=== PATIENT | male | born 1970 | race Caucasian/White ===

== ENCOUNTER 2018-09-30 16:39 | Inpatient (IN) | payer OTHER ==
[~2018-09-30] VITALS: Ht 170.2 cm; Wt 75.0 kg
[2018-09-30] MEDS ORDERED: HALOPERIDOL LACTATE 5 MG/ML VIAL IM ONE (17:45)
[2018-09-30] MEDS ORDERED: LORazepam 2 MG/ML VIAL IM ONE (17:45)
[2018-09-30] MEDS ORDERED: DiphenhydrAMINE HCL 50 MG/ML VIAL IM ONE (17:45)
[2018-09-30] MEDS ORDERED: ZOLPIDEM TARTRATE 10 MG TABLET PO PRN (17:45)
[2018-09-30 18:40] LABS: BASOPHILS % (AUTO) 0.3 % (0.0-2.0); EOSINOPHILS % (AUTO) 0.4 % (1.0-6.0); HEMATOCRIT 43.1 % (41-53); HEMOGLOBIN 14.2 g/dL (13.5-17.5); LYMPHOCYTES % (AUTO) 8.3 % (22.0-44.0); MEAN CORPUSCULAR HEMOGLOBIN 24.6 pg (26.0-34.0); MEAN CORPUSCULAR HGB CONC 32.9 G/dL (31.0-37.0); MEAN CORPUSCULAR VOLUME 75 fL (80-100); MONOCYTES # (AUTO) 0.9 K/uL (0.1-1.0); MONOCYTES % (AUTO) 7.4 % (2.0-9.0); NEUTROPHILS # (AUTO) 9.9 K/uL (1.8-7.7); NEUTROPHILS % (AUTO) 83.6 % (40.0-70.0); PLATELET COUNT (AUTO) 274 K/uL (150-450); RED BLOOD CELL COUNT(AUTO) 5.77 MIL/uL (4.50-5.90); RED CELL DISTRIBUTION WIDTH 18.6 % (11.5-14.5)
[2018-09-30 18:59] LABS: ANION GAP 10 mmol/L (8-16); CALCIUM, TOTAL 9.5 mg/dL (8.8-10.5); CARBON DIOXIDE 24 mmol/L (22-29); CHLORIDE 105 mmol/L (98-107); CREATININE 1.28 mg/dL (0.60-1.30); GLOMERULAR FILTR. RATE CALC 60 mL/min (>60); GLUCOSE,RANDOM 137 mg/dL (70-110); POTASSIUM 3.7 mmol/L (3.5-5.1); SODIUM SERUM 139 mmol/L (136-145); UREA NITROGEN, BLOOD 10 mg/dL (7-18)
[2018-09-30 19:03] LABS: ALANINE AMINOTRANSFERASE 26 U/L (12-78); ALBUMIN 3.9 g/dL (3.4-5.0); ALKALINE PHOSPHATASE 132 U/L (46-116); ASPARTATE AMINOTRANSFERASE 44 U/L (15-37); BILIRUBIN,TOTAL 0.5 mg/dL (0.1-1.0); TOTAL PROTEIN, SERUM 7.5 g/dL (6.4-8.2)
[2018-09-30 20:20] VITALS: BP 124/80
[2018-09-30] MEDS ORDERED: ALBUTEROL SULFATE HFA 90 MCG/PUFF 8 GM INHALER IH PRN (22:15)
[2018-09-30] MEDS ORDERED: LOPERAMIDE HCL 2 MG CAPSULE PO PRN (22:15)
[2018-09-30] MEDS ORDERED: ACETAMINOPHEN 325 MG TABLET PO PRN (22:15)
[2018-09-30] MEDS ORDERED: CloNIDine HCL 0.1 MG TABLET PO PRN (22:15)
[2018-09-30] MEDS ORDERED: MAGNESIUM HYDROXIDE SUSPENSION 30 ML UDCUP PO PRN (22:15)
[2018-09-30] MEDS ORDERED: MAG HYDROX/AL HYDROX/SIMETH ES 30 ML SUSPENSION UDCUP PO PRN (22:15)
[2018-09-30] MEDS ORDERED: GuaiFENesin/D-METHORPHAN [SUGAR-FREE] 200-20MG/10 ML SYRUP UDCUP PO PRN (22:15)
[2018-09-30] MEDS ORDERED: DOCUSATE SODIUM 100 MG CAPSULE PO PRN (22:15)
[2018-09-30] MEDS ORDERED: IBUPROFEN 400 MG TABLET PO PRN (22:15)
[2018-09-30] MEDS ORDERED: ONDANSETRON HCL 4 MG TABLET PO PRN (22:15)
[2018-09-30] MEDS ORDERED: PETROLATUM,WHITE 71 GM JELLY TP PRN (22:15)
[2018-09-30] MEDS ORDERED: NICOTINE 14 MG/24 HOUR PATCH TD PRN (22:15)
[2018-10-01 05:54] LABS: BASOPHILS % (AUTO) 1.2 % (0.0-2.0); EOSINOPHILS % (AUTO) 2.7 % (1.0-6.0); HEMATOCRIT 46.3 % (41-53); LYMPHOCYTES # (AUTO) 1.8 K/uL (1.0-4.8); LYMPHOCYTES % (AUTO) 20.1 % (22.0-44.0); MEAN CORPUSCULAR HEMOGLOBIN 24.8 pg (26.0-34.0); MEAN CORPUSCULAR HGB CONC 32.5 G/dL (31.0-37.0); MEAN CORPUSCULAR VOLUME 76 fL (80-100); MONOCYTES # (AUTO) 1.1 K/uL (0.1-1.0); MONOCYTES % (AUTO) 12.1 % (2.0-9.0); NEUTROPHILS # (AUTO) 5.8 K/uL (1.8-7.7); NEUTROPHILS % (AUTO) 63.9 % (40.0-70.0); PLATELET COUNT (AUTO) 271 K/uL (150-450); RED BLOOD CELL COUNT(AUTO) 6.07 MIL/uL (4.50-5.90); RED CELL DISTRIBUTION WIDTH 18.4 % (11.5-14.5)
[2018-10-01 06:09] LABS: HEMOGLOBIN A1C 5.9 % (4.5-6.2)
[2018-10-01 06:11] LABS: ALBUMIN 3.8 g/dL (3.4-5.0); BILIRUBIN,TOTAL 0.7 mg/dL (0.1-1.0); CALCIUM, TOTAL 9.2 mg/dL (8.8-10.5); CHOL/HDL RATIO 2.5 (4.2-7.3); CREATININE 1.37 mg/dL (0.60-1.30); POTASSIUM 4.1 mmol/L (3.5-5.1); THYROID STIMULATING HORMONE 1.18 uIU/mL (0.36-3.74); TOTAL PROTEIN, SERUM 7.8 g/dL (6.4-8.2)
[2018-10-01 08:10] VITALS: BP 133/99
[2018-10-01] MEDS: OLANZapine 10 MG TABLET PO SCH (16:16)
[2018-10-01] MEDS: LORazepam 2 MG TABLET PO PRN (16:31)
[2018-10-01 17:53] LABS: APPEARANCE,URINE CLOUDY (CLEAR); BILIRUBIN,URINE NEGATIVE (NEGATIVE); GLUCOSE, URINE (UA) NEGATIVE (NEGATIVE); KETONES,URINE NEGATIVE (NEGATIVE); LEUKOCYTE ESTERASE ,URINE NEGATIVE (NEGATIVE); NITRATE,URINE NEGATIVE (NEGATIVE); OCCULT BLOOD,URINE NEGATIVE (NEGATIVE); PH,URINE 6.5 (5.0-8.0); PROTEIN,URINE NEGATIVE (NEGATIVE); UROBILINOGEN,URINE 0.2 mg/dL (<=1.0)
[2018-10-01 17:58] LABS: AMPHET/METH SCREEN,URINE NEGATIVE (NEGATIVE); BARBITURATE SCREEN, URINE NEGATIVE (NEGATIVE); BENZODIAZEPINES SCREEN,URINE NEGATIVE (NEGATIVE); CANNABINOID SCREEN,URINE POSITIVE (NEGATIVE); COCAINE SCREEN,URINE NEGATIVE (NEGATIVE); METHADONE SCREEN, URINE NEGATIVE (NEGATIVE); OPIATE SCREEN,URINE NEGATIVE (NEGATIVE)
[2018-10-01 18:00] LABS: PHENCYCLIDINE SCREEN,URINE NEGATIVE (NEGATIVE)
[2018-10-02 08:00] VITALS: BP 127/74
[2018-10-02] MEDS: OLANZapine 10 MG TABLET PO SCH ×2 (10:32→16:05)
[2018-10-02 16:47] VITALS: BP 145/82
[2018-10-02 16:53] LABS: GLUCOMETER DEV NAME(LOC) 3EC; GLUCOSE,POINT OF CARE 121 MG/DL (70-110)
[2018-10-02] MEDS: LORazepam 2 MG TABLET PO PRN (16:55)
[2018-10-02] MEDS: HALOPERIDOL 5 MG TABLET PO PRN (16:57)
[2018-10-03] MEDS: MetFORMIN HCL 500 MG TABLET PO SCH (06:35)
[2018-10-03] MEDS ORDERED: MetFORMIN HCL 500 MG TABLET PO SCH (07:30)
[2018-10-03 08:27] VITALS: BP 139/99
[2018-10-03] MEDS: LORazepam 2 MG TABLET PO PRN ×2 (08:47→15:54)
[2018-10-03] MEDS: OLANZapine 10 MG TABLET PO SCH ×2 (08:47→15:54)
[2018-10-03] MEDS: HALOPERIDOL 5 MG TABLET PO PRN ×2 (08:47→15:54)
[2018-10-03 15:58] LABS: GLUCOMETER DEV NAME(LOC) 3EC; GLUCOSE,POINT OF CARE 88 MG/DL (70-110)
[2018-10-03 15:58] LABS: GLUCOMETER DEV NAME(LOC) 3EC; GLUCOSE,POINT OF CARE 103 MG/DL (70-110)
[2018-10-03 16:50] VITALS: BP 135/85
[2018-10-04 06:38] LABS: GLUCOMETER DEV NAME(LOC) 3EC; GLUCOSE,POINT OF CARE 102 MG/DL (70-110)
[2018-10-04] MEDS: MetFORMIN HCL 500 MG TABLET PO SCH (06:43)
[2018-10-04] MEDS: HALOPERIDOL 5 MG TABLET PO PRN ×2 (07:51→15:49)
[2018-10-04] MEDS: LORazepam 2 MG TABLET PO PRN ×2 (07:51→15:49)
[2018-10-04] MEDS: OLANZapine 10 MG TABLET PO SCH ×2 (08:25→16:12)
[2018-10-04 09:20] VITALS: BP 133/90
[2018-10-04 16:38] VITALS: BP 139/93
[2018-10-04 21:52] LABS: GLUCOMETER DEV NAME(LOC) 3EX 1; GLUCOSE,POINT OF CARE 113 MG/DL (70-110)
[2018-10-05 03:35] VITALS: BP 129/97
[2018-10-05] MEDS: LORazepam 2 MG TABLET PO PRN ×4 (03:43→18:31)
[2018-10-05 05:33] LABS: GLUCOMETER DEV NAME(LOC) 3EI C; GLUCOSE,POINT OF CARE 124 MG/DL (70-110)
[2018-10-05] MEDS: MetFORMIN HCL 500 MG TABLET PO SCH (06:56)
[2018-10-05] MEDS: OLANZapine 10 MG TABLET PO SCH ×2 (08:25→16:26)
[2018-10-05 09:03] VITALS: BP 137/91
[2018-10-05] MEDS: HALOPERIDOL 5 MG TABLET PO PRN (13:04)
[2018-10-05 17:04] LABS: GLUCOMETER DEV NAME(LOC) 3EI C; GLUCOSE,POINT OF CARE 154 MG/DL (70-110)
[2018-10-05 22:14] VITALS: BP 140/92
[2018-10-06 06:20] VITALS: BP 121/95
[2018-10-06 06:48] LABS: GLUCOMETER DEV NAME(LOC) 3EI C; GLUCOSE,POINT OF CARE 121 MG/DL (70-110)
[2018-10-06] MEDS: MetFORMIN HCL 500 MG TABLET PO SCH (06:56)
[2018-10-06 07:30] VITALS: BP 125/82
[2018-10-06] MEDS: OLANZapine 10 MG TABLET PO SCH ×2 (08:08→16:07)
[2018-10-06] MEDS: LORazepam 2 MG TABLET PO PRN (09:03)
[2018-10-06 09:07] VITALS: BP 141/88
[2018-10-06] MEDS ORDERED: METF-960 PO (15:23)
[2018-10-06] MEDS ORDERED: OLAN10TA3 PO (15:23)
[2018-10-06 15:58] LABS: GLUCOMETER DEV NAME(LOC) 3EI C; GLUCOSE,POINT OF CARE 116 MG/DL (70-110)
== END 2018-10-06 17:45 | disposition home or self-care (01) | DRG 885 ==
LOC: EMS 16:40 → 3EC 18:46 → 3EX 10-04 18:00
PROVIDERS: ADMIT Psychiatry & Neurology Child & Adolescent Psychiatry; ATTEND Psychiatry & Neurology Child & Adolescent Psychiatry
DX: F25.0 Schizoaffective disorder, bipolar type (principal); N17.9 Acute kidney failure, unspecified; F41.9 Anxiety disorder, unspecified; E11.9 Type 2 diabetes mellitus without complications; D72.829 Elevated white blood cell count, unspecified; R74.0 Nonspecific elevation of levels of transaminase and lactic acid dehydrogenase [LDH]; Z91.14 Patient's other noncompliance with medication regimen; Z79.899 Other long term (current) drug therapy
CPT/HCPCS: 80074; 80307; 83036; 84443; 96372; G0378; G0480; J1200; J1630; J2060